=== PATIENT | female | born 1960 | race Caucasian/White ===

== ENCOUNTER → 2019-12-04 | Outpatient (CLI) | payer BC ==
[2019-12-05 09:44] VITALS: BMI 36.2
== END | disposition home or self-care (01) ==
LOC: DBWHC3 13:16
PROVIDERS: ATTEND Family Medicine
DX: E66.9 Obesity, unspecified (principal); Z68.36 Body mass index [BMI] 36.0-36.9, adult
CPT/HCPCS: 97802